=== PATIENT | female | born 2000 | race Caucasian/White ===

== ENCOUNTER → 2020-01-24 | Emergency (ER) | payer OTHER ==
[~2020-01-24] MED LIST: Bupivacaine 0.5% 10 ML VIAL ONE
== END ==
LOC: BURERS 20:50
DX: K01.1 Impacted teeth (principal); F17.210 Nicotine dependence, cigarettes, uncomplicated
CPT/HCPCS: 64400; J3490

== ENCOUNTER 2020-03-25 09:41 | Emergency (ER) | payer OTHER ==
[2020-03-26 11:43] LABS: SARS-CoV-2 MS2 Positive; SARS-CoV-2 N Gene Negative; SARS-CoV-2 S Gene Negative; SARS-CoV-2 by NAA Not Detected (NotDetected); SARS-CoV-2 orf1ab Negative
== END 2020-03-25 15:10 | disposition home or self-care (01) ==
LOC: BURERS 09:41
DX: J06.9 Acute upper respiratory infection, unspecified (principal); Z20.828 Contact with and (suspected) exposure to other viral communicable diseases; F17.210 Nicotine dependence, cigarettes, uncomplicated
CPT/HCPCS: 87635; 87804; 99283; U0003

== ENCOUNTER 2020-06-17 06:24 | Emergency (ER) | payer OTHER ==
[2020-06-17] MEDS ORDERED: Sulfameth/Trimethoprim DS 800-160mg TAB ONE (06:52)
[2020-06-17] MEDS ORDERED: Boostrix 0.5 ML (Tdap) VIAL ONE (06:53)
== END 2020-06-17 06:58 | disposition home or self-care (01) ==
LOC: BURERS 06:24
DX: L03.113 Cellulitis of right upper limb (principal); F17.210 Nicotine dependence, cigarettes, uncomplicated
CPT/HCPCS: 90471; 90715

== ENCOUNTER 2020-09-10 01:56 | Emergency (ER) | payer OTHER, SELFPAY ==
[2020-09-10 02:22] LABS: #Basophils 0.1 thou/uL (0.0-0.2); #Eosinphils 0.2 thou/uL (0.0-0.7); #Lymphocytes 2.7 thou/uL (1.20-3.40); #Neutrophils 4.8 thou/uL (1.40-6.50); %Basophils 1.2 % (0.0-1.0); %Eosinophils 2.2 % (0.0-10.0); %Lymphocytes 31.2 % (28.0-48.0); %Monocytes 11.1 % (0.0-4.0); %Neutrophils 54.4 % (31.0-61.0); Hemoglobin 13.4 g/dL (12.0-16.0); Mean Corpuscular Hemoglobin 30.1 pg (25.0-35.0); Mean Corpuscular Volume 88.6 fL (78.0-98.0); Mean Platelet Volume 8.8 fL (7.4-10.4); Platelet Count 280 thou/uL (130-400); RBC Distribution Width 10.9 % (11.5-14.5); Red Blood Cell (RBC) Count 4.44 mill/uL (4.00-5.20); White Blood Cell (WBC) Count 8.8 thou/uL (4.8-10.8)
[2020-09-10 02:26] LABS: BHCG - Serum Negative (NEGATIVE); Pregs Control Background? CLEAR/WHITE (CLR/WHITE); Pregs Control Bar Appear? YES (CONTROL BAR)
[2020-09-10 02:35] LABS: ALT (SGPT) 13 U/L (8-55); AST (SGOT) 16 U/L (5-34); Albumin 3.9 g/dL (3.5-5.0); Alkaline Phosphatase 59 U/L (40-100); Anion Gap 14 mmol/L (10-20); BUN (Urea Nitrogen) 9 mg/dL (7.0-18.7); Bilirubin, Total 0.4 mg/dL (0.2-1.2); Calc. Creatinine Clearance 0 mL/min (70-130); Calcium 8.3 mg/dL (7.8-10.44); Carbon Dioxide 23 mmol/L (22-29); Chloride 103 mmol/L (98-107); Globulin 2.6 g/dL (2.4-3.5); Glucose 83 mg/dL (70-105); Potassium 3.3 mmol/L (3.5-5.1); Protein, Total 6.5 g/dL (6.0-8.3); Sodium 137 mmol/L (136-145)
[2020-09-10 02:36] LABS: Acetaminophen Less than 6.0 mcg/mL (10.0-30.0); Alcohol 153 mg/dL (Less than 10); Salicylate Less than 8.0 mg/dL (15.0-30.0)
== END 2020-09-10 02:45 | disposition home or self-care (01) ==
LOC: BURERS 01:56
DX: F10.129 Alcohol abuse with intoxication, unspecified (principal); Y90.6 Blood alcohol level of 120-199 mg/100 ml; F17.210 Nicotine dependence, cigarettes, uncomplicated
CPT/HCPCS: 80053; 80307; 84703; 85025; 99284

== ENCOUNTER 2020-11-05 01:37 | Emergency (ER) | payer OTHER | END 2020-11-05 03:25 | disposition home or self-care (01) | LOC: BURERS 01:37 | DX: S00.211A Abrasion of right eyelid and periocular area, initial encounter (principal); F41.9 Anxiety disorder, unspecified; Y04.0XXA Assault by unarmed brawl or fight, initial encounter | CPT/HCPCS: 99283 ==

== ENCOUNTER 2021-06-17 15:51 | Emergency (ER) | payer OTHER ==
[2021-06-17] MEDS ORDERED: Cyclobenzaprine 10 MG TAB ONE (16:29)
[2021-06-17] MEDS ORDERED: Acetaminophen 500 MG TAB ONE (16:29)
== END 2021-06-17 16:33 | disposition home or self-care (01) ==
LOC: BURERS 15:51
DX: M54.41 Lumbago with sciatica, right side (principal); F17.290 Nicotine dependence, other tobacco product, uncomplicated
CPT/HCPCS: 99283

== ENCOUNTER 2024-01-11 06:31 | Emergency (ER) | payer BC, OTHER, SELFPAY ==
[2024-01-11] MEDS ORDERED: Ondansetron ODT 4 MG TAB ONE (06:58)
== END 2024-01-11 08:04 | disposition home or self-care (01) ==
LOC: BURERS 06:31
DX: J06.9 Acute upper respiratory infection, unspecified (principal); R11.2 Nausea with vomiting, unspecified; F17.290 Nicotine dependence, other tobacco product, uncomplicated
CPT/HCPCS: 87804; 99284; Q0162